=== PATIENT | male | born 1985 | race Caucasian/White ===

== ENCOUNTER 2018-03-25 01:12 | Inpatient (IN) | payer OTHER ==
[~2018-03-25] VITALS: Ht 182.9 cm; Wt 90.3 kg
[2018-03-25] VITALS (38 sets, daily range): BP systolic 110–133; BP diastolic 66–101
--- NOTE | ~2018-03-25 | EKG ---
[address] [address] ELECTROCARDIOGRAM REPORT Name: EDVIN PRETTY Room #: 239-P [facility] IN M.R.#: [id number] Admission: 03/25/18 Attend Phys: Kvng Sommer Discharge: 03/26/18 Date of : 89 Report #: [id number] THIS REPORT FOR: //name// [facility] Test Date: 2018-03-25 Test Time: 16:49:06 Pat Name: EDVIN PRETTY Department: Room: 239 P Gender: M Utility Operator Yarn: SWAPNA : 1985 Requested By: David Baumann Order Number: [id number] MD: Newton Boykin Measurements Intervals [place] Rate: 76 P: 62 OK: 156 QRS: 45 QRSD: 106 T: 61 QT: 448 QTc: 504 Interpretive Statements Sinus arrhythmia No previous ECG available for comparison Electronically Signed On 03-27-2018 8:04:23 CDT by Newton Boykin [email or web address] <ELECTRONICALLY SIGNED> By: Newton Boykin MD 03/27/18 0804 [id number] MD AARTI Donato
--- NOTE | ~2018-03-25 | EKG ---
[address] [address] ELECTROCARDIOGRAM REPORT Name: EDVIN PRETTY Room #: 239-P ADM IN M.R.#: [id number] Admission: 03/25/18 Attend Phys: Kvng Sommer Discharge: Date of : 89 Report #: [id number] THIS REPORT FOR: //name// [facility] ED Test Date: 2018-03-25 Test Time: 01:18:06 Pat Name: EDVIN PRETTY Department: Patient ID: [id number]- Room: Gender: M [employer] Consultant: TK : 1985 Requested By: Sohail Cote Order Number: [id number] MD: Measurements Intervals [place] Rate: 117 P: 68 MS: 134 QRS: 69 QRSD: 101 T: 55 QT: 348 QTc: 486 Interpretive Statements Sinus tachycardia Borderline prolonged QT interval No previous ECG available for comparison [email or web address] By: 7 7 Brinda Parry MD /EPI
[2018-03-25 01:38] LABS: BASOPHILS 0.6 % (0.0-2.0); EOSINOPHILS 1.3 % (0.0-3.0); HEMATOCRIT 48.3 % (42.0-52.0); HEMOGLOBIN 16.3 gm/dL (14.0-18.0); LYMPHOCYTES 21.4 % (24.0-44.0); MCHC 33.7 g/dL (28.0-37.0); MCV 88.9 fL (80.0-100.0); MONOCYTES 5.1 % (1.0-8.0); PLATELET COUNT 288 thou/uL (150-400); POLYS 71.6 % (36.0-66.0); RBC 5.44 mil/uL (4.50-6.00); RDW 13.4 % (10.5-14.5); WBC 13.9 thou/uL (4.0-11.0)
[2018-03-25 01:46] LABS: ANION GAP 10 mmol/L (7-16); BUN 12 mg/dL (7-18); CALCIUM 8.9 mg/dL (8.5-10.1); CHLORIDE 100 mmol/L (98-107); CO2 23 mmol/L (21-32); CREATININE 1.2 mg/dL (0.7-1.3); GLUCOSE 224 mg/dL (74-106); POTASSIUM 3.5 mmol/L (3.5-5.1); SODIUM 133 mmol/L (136-145)
[2018-03-25 01:55] LABS: ALBUMIN 3.5 g/dL (3.4-5.0); SALICYLATE < 2.8 mg/dL (2.8-20.0); SGOT 85 U/L (15-37); SGPT 101 U/L (30-65); TOTAL BILIRUBIN 0.6 mg/dL (<0.1-1.0); TROPONIN-I < 0.04 ng/mL (<0.06)
[2018-03-25 10:42] LABS: INR 1.1
[2018-03-25 12:40] LABS: AMP/METHAMP POSITIVE (Negative); BARBITURATES Negative (Negative); BENZODIAZEPINES POSITIVE (Negative); COCAINE Negative (Negative); METHADONE Negative (Negative); OPIATES POSITIVE (Negative); PCP Negative (Negative)
[2018-03-25 13:41] LABS: URINE BILIRUBIN NEGATIVE (Negative); URINE BLOOD NEGATIVE (Negative); URINE CLARITY CLEAR; URINE COLOR YELLOW; URINE GLUCOSE-RANDOM* NEGATIVE (Negative); URINE KETONES NEGATIVE (Negative); URINE LEUKOCYTES-REFLEX NEGATIVE (Negative); URINE NITRITE-REFLEX NEGATIVE (Negative); URINE PROTEIN (DIPSTICK) TRACE (Negative)
[2018-03-25 21:10] LABS: GLYCOHEMOGLOBIN (HGB A1C) 4.8 % (4.8-5.6)
[2018-03-26 02:05] LABS: HAV IgM AB (ANTI-HAV IgM) Negative (Negative); HEPATITIS B SURFACE AG Negative (Negative); HEPATITIS C VIRUS AB >11.0 (0.0-0.9)
[2018-03-26 04:10] LABS: CALCIUM 8.4 mg/dL (8.5-10.1); CREATININE 0.9 mg/dL (0.7-1.3)
[2018-03-26 04:14] LABS: ABSOLUTE NEUTROPHILS 5.8 thou/uL (1.4-8.2); BASOPHILS 0.4 % (0.0-2.0); EOSINOPHILS 3.3 % (0.0-3.0); HEMATOCRIT 39.1 % (42.0-52.0); LYMPHOCYTES 29.1 % (24.0-44.0); MCH 30.2 pg (26.0-34.0); MCHC 34.5 g/dL (28.0-37.0); MCV 87.3 fL (80.0-100.0); PLATELET COUNT 260 thou/uL (150-400); POLYS 61.2 % (36.0-66.0); RBC 4.48 mil/uL (4.50-6.00); RDW 13.4 % (10.5-14.5); WBC 9.5 thou/uL (4.0-11.0)
[2018-03-26 04:25] LABS: HEMOGLOBIN 13.5 gm/dL (14.0-18.0)
[2018-03-26 07:00] VITALS: BP 129/88
[2018-03-26 08:00] VITALS: BP 125/85
[2018-03-26 09:00] VITALS: BP 130/73
[2018-03-26 10:00] VITALS: BP 128/83
[2018-03-26 11:00] VITALS: BP 133/94
[2018-03-26 11:43] VITALS: BP 125/85
== END 2018-03-26 11:50 | disposition home or self-care (01) | DRG 917 ==
LOC: EDBD 01:12 → ER 01:12 → EROBS 02:27 → ICU 03:18
PROVIDERS: Emergency Medicine; Internal Medicine Geriatric Medicine; Nurse Practitioner Acute Care
DX: T40.1X1A Poisoning by heroin, accidental (unintentional), initial encounter (principal); J96.01 Acute respiratory failure with hypoxia; I46.9 Cardiac arrest, cause unspecified; R74.0 Nonspecific elevation of levels of transaminase and lactic acid dehydrogenase [LDH]; R73.9 Hyperglycemia, unspecified; F17.210 Nicotine dependence, cigarettes, uncomplicated; Y92.89 Other specified places as the place of occurrence of the external cause; Z79.899 Other long term (current) drug therapy
CPT/HCPCS: 10078